=== PATIENT | female | born 1960 ===

== ENCOUNTER 2020-03-23 08:15 | Inpatient (IN) | payer OTHER ==
[~2020-03-23] VITALS: Ht 167.6 cm; Wt 78.9 kg
[2020-03-23] MEDS ORDERED: GLIMEPIRIDE1 MG (12:13)
[2020-03-23] MEDS ORDERED: SIMVASTATIN10 MG PO (12:13)
[2020-03-23] MEDS ORDERED: JENTADUETO 2.51 EAC2 PO (12:14)
[2020-03-23] MEDS ORDERED: GABAPENTIN800 M1 PO (12:15)
[2020-04-01] MEDS ORDERED: GABAPENTIN300 MG PO (10:56)
[2020-04-01] MEDS ORDERED: OXYC1TAB9 PO (10:56)
== END 2020-04-01 12:59 | disposition home or self-care (01) | DRG 455 ==
LOC: O/R 03-30 06:09 → SURH 03-30 07:00
PROVIDERS: ADMIT Neurological Surgery; ATTEND Neurological Surgery
PROC: 0SG0071 Fusion of Lumbar Vertebral Joint with Autologous Tissue Substitute, Posterior Approach, Posterior Column, Open Approach (ICD-10-PCS; 2020-03-30)
PROC: 0ST20ZZ Resection of Lumbar Vertebral Disc, Open Approach (ICD-10-PCS; 2020-03-30)
PROC: 3E0U0GB Introduction of Recombinant Bone Morphogenetic Protein into Joints, Open Approach (ICD-10-PCS; 2020-03-30)
PROC: 07DS3ZZ Extraction of Vertebral Bone Marrow, Percutaneous Approach (ICD-10-PCS; 2020-03-30)
PROC: 0SG00AJ Fusion of Lumbar Vertebral Joint with Interbody Fusion Device, Posterior Approach, Anterior Column, Open Approach (ICD-10-PCS; principal; 2020-03-30 07:00)
DX: M48.062 Spinal stenosis, lumbar region with neurogenic claudication (principal); M54.16 Radiculopathy, lumbar region; E11.9 Type 2 diabetes mellitus without complications